=== PATIENT | female | born 1975 | race African-American/Black ===

== ENCOUNTER 2018-07-07 12:40 | Emergency (ER) | payer OTHER ==
[~2018-07-07] VITALS: Ht 170.2 cm; Wt 76.2 kg
[~2018-07-07 12:40] MED LIST: ALDACTONE100 MG PO; CORGARD20 MG PO; FUROSEMIDE 40 M40 M1 PO; VITAMIN D1000 UNI1 PO; ZINC CHELATE50 MG PO; [UNRECOGNIZED DRUG - CODE] PO; [UNRECOGNIZED DRUG - OTHER]
[2018-07-07] MEDS ORDERED: LIPITOR 20 MG T20 M1 PO (13:02)
[2018-07-07] MEDS ORDERED: MYFORTIC360 MG PO (13:02)
[2018-07-07] MEDS ORDERED: TACROLIMUS1 MG PO (13:02)
[2018-07-07] MEDS ORDERED: OMEPRAZOLE40 MG PO (13:02)
[2018-07-07] MEDS ORDERED: WELLBUTRIN SR150 MG PO (13:03)
[2018-07-07 13:14] LABS: URINE BLOOD 3+ (Negative); URINE GLUCOSE-RANDOM* NEGATIVE (Negative); URINE KETONES NEGATIVE (Negative); URINE NITRITE-REFLEX NEGATIVE (Negative); URINE PROTEIN (DIPSTICK) 1+ (Negative); URINE SPECIFIC GRAVITY >= 1.030 (1.005-1.035); URINE UROBILINOGEN 0.2 E.U./dl (0.2-1.0)
[2018-07-07 13:21] LABS: URINE LEUKOCYTES-REFLEX 2+ (Negative)
[2018-07-07 13:22] LABS: URINE BILIRUBIN NEGATIVE (Negative); URINE CLARITY HAZY; URINE COLOR YELLOW
[2018-07-07 13:34] LABS: CASTS None Seen /LPF (None Seen); CRYSTALS None Seen /LPF (None Seen); SQUAMOUS 0-3 Few /LPF (0-3); URINE RBC >20 Many /HPF (0-2); URINE WBC-REFLEX >25 Many /HPF (0-5)
[2018-07-07 14:11] LABS: ABSOLUTE NEUTROPHILS 5.9 thou/uL (1.4-8.2); BASOPHILS 0.7 % (0.0-2.0); EOSINOPHILS 0.4 % (0.0-3.0); HEMATOCRIT 32.1 % (37.0-47.0); HEMOGLOBIN 10.7 gm/dL (12.0-15.0); LYMPHOCYTES 7.2 % (24.0-44.0); MCH 28.2 pg (26.0-34.0); MCHC 33.2 g/dL (28.0-37.0); MCV 84.8 fL (80.0-100.0); MONOCYTES 7.8 % (1.0-8.0); PLATELET COUNT 205 thou/uL (150-400); POLYS 83.9 % (36.0-66.0); RBC 3.79 mil/uL (4.20-5.00); RDW 13.2 % (10.5-14.5); WBC 7.1 thou/uL (4.0-11.0)
[2018-07-07 14:18] LABS: CALCIUM 8.1 mg/dL (8.5-10.1); CREATININE 1.2 mg/dL (0.6-1.0)
[2018-07-07 14:24] LABS: ALBUMIN 3.4 g/dL (3.4-5.0); TOTAL BILIRUBIN 0.5 mg/dL (<0.1-1.0); TOTAL PROTEIN 6.7 g/dL (6.4-8.2)
[2018-07-07] MEDS ORDERED: ONDANSETRON HCL4 M2 PO (19:36)
[2018-07-07] MEDS ORDERED: BENTYL 20 MG TA20 M1 PO (19:36)
[2018-07-07 19:45] VITALS: BP 117/79
== END 2018-07-07 19:46 | disposition home or self-care (01) ==
LOC: ER 12:40
PROVIDERS: Physician Assistant
DX: N39.0 Urinary tract infection, site not specified (principal); R11.2 Nausea with vomiting, unspecified; I10 Essential (primary) hypertension; Z88.8 Allergy status to other drugs, medicaments and biological substances